=== PATIENT | male | born 1995 | race Caucasian/White ===

== ENCOUNTER 2018-12-05 11:52 | Emergency (ER) | payer BC ==
[~2018-12-05] VITALS: Ht 177.8 cm; Wt 78.9 kg
[2018-12-05 12:00] VITALS: Ht 177.8 cm; Wt 78.9 kg
[2018-12-05 14:12] VITALS: BP 125/72
== END 2018-12-05 14:12 | disposition home or self-care (01) ==
LOC: ED 11:52
DX: S01.21XA Laceration without foreign body of nose, initial encounter (principal); S09.8XXA Other specified injuries of head, initial encounter; F17.210 Nicotine dependence, cigarettes, uncomplicated; Z98.890 Other specified postprocedural states; W22.8XXA Striking against or struck by other objects, initial encounter; Y93.89 Activity, other specified; Y92.89 Other specified places as the place of occurrence of the external cause; Y99.8 Other external cause status
CPT/HCPCS: 90715; 99406; J2001

== ENCOUNTER 2018-12-07 11:39 | Emergency (ER) | payer BC ==
[~2018-12-07] VITALS: Ht 177.8 cm; Wt 74.6 kg
[2018-12-07 11:41] VITALS: BP 119/70; Ht 177.8 cm; Wt 74.6 kg
== END 2018-12-07 11:58 | disposition home or self-care (01) ==
LOC: ED 11:39
DX: S01.81XD Laceration without foreign body of other part of head, subsequent encounter (principal); X58.XXXD Exposure to other specified factors, subsequent encounter

== ENCOUNTER 2018-12-12 11:27 | Emergency (ER) | payer BC ==
[~2018-12-12] VITALS: Ht 177.8 cm; Wt 77.6 kg
[2018-12-12 11:32] VITALS: BP 122/59
== END 2018-12-12 13:27 | disposition home or self-care (01) ==
LOC: ED 11:27
DX: S01.21XD Laceration without foreign body of nose, subsequent encounter (principal); X58.XXXD Exposure to other specified factors, subsequent encounter